=== PATIENT | male | born 1980 | race Caucasian/White ===

== ENCOUNTER 2017-08-26 22:45 | Emergency (ER) | payer OTHER ==
[~2017-08-26] VITALS: Ht 182.9 cm; Wt 95.0 kg
[~2017-08-26 22:45] MED LIST: PROP1TAB PO
[2017-08-26 22:58] VITALS: BP 139/83; PULSE 85; RESP 12; TEMP 98.2; O2SAT 98
[2017-08-26] MEDS ORDERED: VENL25TA PO (23:27)
[2017-08-26] MEDS ORDERED: ALPR.25 PO (23:27)
[2017-08-26] MEDS ORDERED: ZOLP1SUB2 SL (23:27)
--- NOTE | 2017-08-27 00:12 | PD ---
HPI Chief Complaint: Suicide Ideation/Attempt Time Seen by Provider: 00:06 Travel History International Travel<30 days: No Contact w/Intl Traveler<30days: No Traveled to known affect area: No History of Present Illness HPI 37-year-old white male presents emergency department under [place] act by PD. Patient allegedly had been arguing with his baby delmisa today via text messages. The patient had sent suicide suggested text messages earlier this afternoon. Patient states that he was out of the state and had flown in earlier this afternoon. He was over at his mother's house going to sleep this evening when please came to the house and placed him under a Basurto act. Patient states that he is not suicidal or homicidal. He is merely upset with his significant other. He denies any toxic ingestions. No recent illness. He does drink alcohol on occasion, smokes marijuana on occasion, and tobacco. Patient denies any acute medical complaints. He does report that his mother is been diagnosed with a terminal lung disease and he has been under increasing stress. He has been treated by his doctor in [place] with an antidepressant, Ativan and trazodone for sleep. He is requesting his trazodone. [facility] Past Medical History Narrative Medical Depression, anxiety Tetanus Vaccination: < 5 Years Past Surgical History Surgical History: No Previous Surgery Social History Alcohol Use: Yes (SOCIAL) Tobacco Use: Yes Substance Use: Yes (MARIJUANA ) Allergies-Medications (Allergen,Severity, Reaction): Coded Allergies: No Known Allergies (Unverified , 12/27/15) Reported Meds & Prescriptions Reported Meds & Active Scripts Active Reported Zolpidem (Zolpidem Tartrate) Unknown Strength Sub Unknown Dose SL HS PRN Effexor (Venlafaxine HCl) Unknown Strength Tab Unknown Dose PO Q12H Xanax (Alprazolam) Unknown Strength Tab Unknown Dose PO Q4H PRN Physical Exam Narrative GENERAL: Well-nourished, well-developed patient. SKIN: Warm and dry. HEAD: Normocephalic and atraumatic. EYES: No scleral icterus. No injection or drainage. ENT: No nasal drainage noted. Mucous membranes pink. Airway patent. NECK: Supple, trachea midline. Moves head freely without obvious discomfort. CARDIOVASCULAR: Regular rate and rhythm without murmurs, gallops, or rubs. RESPIRATORY: Breath sounds equal bilaterally. No accessory muscle use. GASTROINTESTINAL: Abdomen soft, non-tender, nondistended. EXTREMITIES: No cyanosis or edema. BACK: Nontender without obvious deformity. No CVA tenderness. NEURO: Patient is alert and oriented. no sensorimotor deficits. Nonfocal. Normal speech. PSYCH: No delusions. No auditory or visual hallucinations. Data Data Last Documented VS Vital Signs Date Time Temp Pulse Resp B/P (MAP) Pulse Ox O2 Delivery O2 Flow Rate FiO2 08/26/17 22:58 98.2 85 12 139/83 (101) 98 Orders Orders Psych Screen (08/26/17 23:10) Complete Blood Count With Diff (08/26/17 23:27) Comprehensive Metabolic Panel (08/26/17 23:27) Thyroid Stimulating Hormone (08/26/17 23:27) Drug Screen, Random Urine (08/26/17 23:27) Alcohol (Ethanol) (08/26/17 23:27) Salicylates (Aspirin) (08/26/17 23:27) Tylenol (Acetaminophen) (08/26/17 23:27) Trazodone (Desyrel) (08/27/17 00:15) Labs Laboratory Tests Test 08/26/17 23:25 08/27/17 00:01 Urine Opiates Screen NEG Urine Barbiturates Screen NEG Urine Amphetamines Screen NEG Urine Benzodiazepines Screen POS Urine Cocaine Screen NEG Urine Cannabinoids Screen POS White Blood Count 6.8 TH/MM3 Red Blood Count 5.51 MIL/MM3 Hemoglobin 16.8 GM/DL Hematocrit 48.2 % Mean Corpuscular Volume 87.5 FL Mean Corpuscular Hemoglobin 30.6 PG Mean Corpuscular Hemoglobin Concent 34.9 % Red Cell Distribution Width 13.5 % Platelet Count 230 TH/MM3 Mean Platelet Volume 7.5 FL Neutrophils (%) (Auto) 65.1 % Lymphocytes (%) (Auto) 23.4 % Monocytes (%) (Auto) 9.0 % Eosinophils (%) (Auto) 2.0 % Basophils (%) (Auto) 0.5 % Neutrophils # (Auto) 4.4 TH/MM3 Lymphocytes # (Auto) 1.6 TH/MM3 Monocytes # (Auto) 0.6 TH/MM3 Eosinophils # (Auto) 0.1 TH/MM3 Basophils # (Auto) 0.0 TH/MM3 CBC Comment DIFF FINAL Differential Comment Blood Urea Nitrogen 15 MG/DL Creatinine 1.09 MG/DL Random Glucose 122 MG/DL Total Protein 7.4 GM/DL Albumin 4.0 GM/DL Calcium Level 8.3 MG/DL Alkaline Phosphatase 72 U/L Aspartate Amino Transf (AST/SGOT) 30 U/L Alanine Aminotransferase (ALT/SGPT) 44 U/L Total Bilirubin 0.4 MG/DL Sodium Level 141 MEQ/L Potassium Level 3.6 MEQ/L Chloride Level 105 MEQ/L Carbon Dioxide Level 26.4 MEQ/L Anion Gap 10 MEQ/L Estimat Glomerular Filtration Rate 77 ML/MIN Thyroid Stimulating Hormone 3rd Gen 1.240 uIU/ML Salicylates Level LESS THAN 1.7 MG/DL Acetaminophen Level LESS THAN 2.0 MCG/ML Ethyl Alcohol Level 63 MG/DL MDM Medical Decision Making Medical Screen Exam Complete: Yes Emergency Medical Condition: Yes Medical Record Reviewed: Yes Interpretation(s) Laboratory Tests Test 08/26/17 23:25 08/27/17 00:01 Urine Opiates Screen NEG Urine Barbiturates Screen NEG Urine Amphetamines Screen NEG Urine Benzodiazepines Screen POS Urine Cocaine Screen NEG Urine Cannabinoids Screen POS White Blood Count 6.8 TH/MM3 Red Blood Count 5.51 MIL/MM3 Hemoglobin 16.8 GM/DL Hematocrit 48.2 % Mean Corpuscular Volume 87.5 FL Mean Corpuscular Hemoglobin 30.6 PG Mean Corpuscular Hemoglobin Concent 34.9 % Red Cell Distribution Width 13.5 % Platelet Count 230 TH/MM3 Mean Platelet Volume 7.5 FL Neutrophils (%) (Auto) 65.1 % Lymphocytes (%) (Auto) 23.4 % Monocytes (%) (Auto) 9.0 % Eosinophils (%) (Auto) 2.0 % Basophils (%) (Auto) 0.5 % Neutrophils # (Auto) 4.4 TH/MM3 Lymphocytes # (Auto) 1.6 TH/MM3 Monocytes # (Auto) 0.6 TH/MM3 Eosinophils # (Auto) 0.1 TH/MM3 Basophils # (Auto) 0.0 TH/MM3 CBC Comment DIFF FINAL Differential Comment Blood Urea Nitrogen 15 MG/DL Creatinine 1.09 MG/DL Random Glucose 122 MG/DL Total Protein 7.4 GM/DL Albumin 4.0 GM/DL Calcium Level 8.3 MG/DL Alkaline Phosphatase 72 U/L Aspartate Amino Transf (AST/SGOT) 30 U/L Alanine Aminotransferase (ALT/SGPT) 44 U/L Total Bilirubin 0.4 MG/DL Sodium Level 141 MEQ/L Potassium Level 3.6 MEQ/L Chloride Level 105 MEQ/L Carbon Dioxide Level 26.4 MEQ/L Anion Gap 10 MEQ/L Estimat Glomerular Filtration Rate 77 ML/MIN Thyroid Stimulating Hormone 3rd Gen 1.240 uIU/ML Salicylates Level LESS THAN 1.7 MG/DL Acetaminophen Level LESS THAN 2.0 MCG/ML Ethyl Alcohol Level 63 MG/DL Differential Diagnosis MDM: High Differential diagnoses: Schizophrenia, schizoaffective disorder, bipolar, anxiety, depression, adjustment reaction, mood disorder NOS, ODD, depressive disorder NOS, psychosis NOS, substance induced mood disorder, infection, electrolyte abnormality, malingering. Narrative Course Mental health screening discussed with the patient. Psychiatric screen ordered. The patient has requested his evening dose of trazodone for sleep. He is given 50 mg p.o. The patient has been medically cleared. This is medical clearance for psychiatric admission Diagnosis Primary Impression: Medical clearance for psychiatric admission Condition: Stable Michael Segundo August 27, 2017 00:12
[2017-08-27 00:13] LABS: AUTOMATED NEUTROPHIL # 4.4 TH/MM3 (1.8-7.7); BASOPHIL % 0.5 % (0.0-2.0); EOSINOPHIL # 0.1 TH/MM3 (0-0.4); HEMATOCRIT 48.2 % (39.0-51.0); HEMOGLOBIN 16.8 GM/DL (13.0-17.0); LYMPH % 23.4 % (9.0-44.0); LYMPHOCYTE # 1.6 TH/MM3 (1.0-4.8); MEAN CELL VOLUME 87.5 FL (80.0-100.0); MEAN CORPUSCULAR HEMOGLOBIN 30.6 PG (27.0-34.0); MEAN CORPUSCULAR HGB CONC 34.9 % (32.0-36.0); MEAN PLATELET VOLUME 7.5 FL (7.0-11.0); MONOCYTE # 0.6 TH/MM3 (0-0.9); NEUT % 65.1 % (16.0-70.0); PLATELET COUNT 230 TH/MM3 (150-450); RED BLOOD COUNT 5.51 MIL/MM3 (4.50-5.90); RED CELL DISTRIBUTION WIDTH 13.5 % (11.6-17.2); WHITE BLOOD COUNT 6.8 TH/MM3 (4.0-11.0)
[2017-08-27] MEDS ORDERED: traZODone HCL 50 MG TAB PO ONE (00:15)
[2017-08-27 00:32] LABS: ALT (GPT) 44 U/L (12-78); AST (GOT) 30 U/L (15-37); BICARBONATE 26.4 MEQ/L (21.0-32.0); BLOOD UREA NITROGEN 15 MG/DL (7-18); CALCIUM 8.3 MG/DL (8.5-10.1); CHLORIDE 105 MEQ/L (98-107); CREATININE 1.09 MG/DL (0.60-1.30); GLOMERULAR FILTRATION RATE 77 ML/MIN (>89); GLUCOSE,RANDOM 122 MG/DL (74-106); SODIUM (NA) 141 MEQ/L (136-145)
[2017-08-27 00:43] LABS: ALKALINE PHOSPHATASE 72 U/L (45-117); TOTAL BILIRUBIN ADULT 0.4 MG/DL (0.2-1.0); TOTAL PROTEIN 7.4 GM/DL (6.4-8.2)
[2017-08-27 00:46] LABS: ACETAMINOPHEN LESS THAN 2.0 MCG/ML (10.0-30.0)
[2017-08-27 05:39] VITALS: BP 129/66; PULSE 81; RESP 16; O2SAT 98
--- NOTE | 2017-08-27 12:53 | PD.PSY.CON ---
Provisional Diagnosis Admission Date [place] I. Alcohol-induced mood disorder, alcohol use disorder, benzodiazepines and cannabis use disorder [place] II. Deferred [place] III. 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 Patient allegedly had been arguing with his baby delmisa today via text messages. The patient had sent suicide suggested text messages yesterday afternoon. Patient states that he was out of the state and had flown in earlier this afternoon. He was over at his mother's house going to sleep this evening when please came to the house and placed him under a Basurto act. Patient reports that he was maybe "a little bit drunk and I should not say whaat I stated, but I never meant to commit suicide". Patient is future oriented, he says that he has business to close this week. The patient denies depressive symptoms, he denies suicidal enemas ideation, he denies visual and auditory hallucinations. He is clinically sober at the moment. Logical, coherent and relevant. Oriented 3. No symptoms of withdrawal or intoxication present at this moment. He is oriented 3. Review of Systems Constitutional: DENIES: Diaphoretic episodes, Fatigue, Fever, Weight gain, Weight loss, Chills, Dizziness, Change in appetite, Night Sweats Endocrine: DENIES: Heat/cold intolerance, Polydipsia, Polyuria, Polyphagia Eyes: DENIES: Blurred vision, Diplopia, Eye inflammation, Eye pain, Vision loss , Photosensitivity, Double Vision Ears, nose, mouth, throat: DENIES: Tinnitus, Hearing loss, Vertigo, Nasal discharge, Oral lesions, Throat pain, Hoarseness, Ear Pain, Running Nose, Epistaxis, Sinus Pain, Toothache, Odynophagia Respiratory: DENIES: Apneas, Cough, Snoring, Wheezing, Hemoptysis, Sputum production, Shortness of breath Cardiovascular: DENIES: Chest pain, Palpitations, Syncope, Dyspnea on Exertion , PND, Lower Extremity Edema, Orthopnea, Claudication Gastrointestinal: DENIES: Abdominal pain, Black stools, Bloody stools, Constipation, Diarrhea, Nausea, Vomiting, Difficulty Swallowing, Anorexia Genitourinary: DENIES: Sexual dysfunction, Urinary frequency, Urinary incontinence, Urgency, Hematuria, Dysuria, Nocturia, Penile Discharge, Testicular Pain, Testicular Swelling Musculoskeletal: DENIES: Joint pain, Muscle aches, Stiffness, Joint Swelling, Back pain, Neck pain Integumentary: DENIES: Abnormal pigmentation, Nail changes, Pruritus, Rash Hematologic/lymphatic: DENIES: Bruising, Lymphadenopathy Immunologic/allergic: DENIES: Eczema, Urticaria Neurologic: DENIES: Abnormal gait, Headache, Localized weakness, Paresthesias, Seizures, Speech Problems, Tremor, Poor Balance Psychiatric: DENIES: Anxiety, Confusion, Mood changes, Depression, Hallucinations, Agitation, Suicidal Ideation, Homicidal Ideation, Delusions Past Family Social History Coded Allergies: No Known Allergies (Unverified Adverse Reaction, Unknown, 08/27/17) Reported Medications Zolpidem (Zolpidem) Unknown Strength Sub, SL HS Y for INSOMNIA, TAB.SL 0 Refills 08/26/17 Venlafaxine (Effexor) Unknown Strength Tab, PO Q12H, #60 TAB 0 Refills 08/26/17 Alprazolam (Xanax) Unknown Strength Tab, PO Q4H Y for ANXIETY, TAB 0 Refills 08/26/17 Family Psych History No family psychiatric Social History Patient was born and raised in [facility], he lives in [facility] with baby mom, 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 2) Family support, no psychiatric history Physical Exam Vital Signs Vital Signs Date Time Temp Pulse Resp B/P (MAP) Pulse Ox O2 Delivery O2 Flow Rate FiO2 08/27/17 09:36 08/27/17 05:39 81 16 98 Room Air 08/26/17 22:58 98.2 Lab Results Test 08/26/17 23:25 08/27/17 00:01 Urine Opiates Screen NEG Urine Barbiturates Screen NEG Urine Amphetamines Screen NEG Urine Benzodiazepines Screen POS Urine Cocaine Screen NEG Urine Cannabinoids Screen POS White Blood Count 6.8 TH/MM3 Red Blood Count 5.51 MIL/MM3 Hemoglobin 16.8 GM/DL Hematocrit 48.2 % Mean Corpuscular Volume 87.5 FL Mean Corpuscular Hemoglobin 30.6 PG Mean Corpuscular Hemoglobin Concent 34.9 % Red Cell Distribution Width 13.5 % Platelet Count 230 TH/MM3 Mean Platelet Volume 7.5 FL Neutrophils (%) (Auto) 65.1 % Lymphocytes (%) (Auto) 23.4 % Monocytes (%) (Auto) 9.0 % Eosinophils (%) (Auto) 2.0 % Basophils (%) (Auto) 0.5 % Neutrophils # (Auto) 4.4 TH/MM3 Lymphocytes # (Auto) 1.6 TH/MM3 Monocytes # (Auto) 0.6 TH/MM3 Eosinophils # (Auto) 0.1 TH/MM3 Basophils # (Auto) 0.0 TH/MM3 CBC Comment DIFF FINAL Differential Comment Blood Urea Nitrogen 15 MG/DL Creatinine 1.09 MG/DL Random Glucose 122 MG/DL Total Protein 7.4 GM/DL Albumin 4.0 GM/DL Calcium Level 8.3 MG/DL Alkaline Phosphatase 72 U/L Aspartate Amino Transf (AST/SGOT) 30 U/L Alanine Aminotransferase (ALT/SGPT) 44 U/L Total Bilirubin 0.4 MG/DL Sodium Level 141 MEQ/L Potassium Level 3.6 MEQ/L Chloride Level 105 MEQ/L Carbon Dioxide Level 26.4 MEQ/L Anion Gap 10 MEQ/L Estimat Glomerular Filtration Rate 77 ML/MIN Thyroid Stimulating Hormone 3rd Gen 1.240 uIU/ML Salicylates Level LESS THAN 1.7 MG/DL Acetaminophen Level LESS THAN 2.0 MCG/ML Ethyl Alcohol Level 63 MG/DL Mental Status Examination Appearance: Appropriate Consciousness: Alert Orientation: x4 Motor Activity: Normal gait Speech: Unremarkable Language: Adequate Fund of Knowledge: Adequate Attention and Concentration: Adequate Memory: Unremarkable Mood: Appropriate Affect: Appropriate Thought Process & Associations: Intact Thought Content: Appropriate Hallucination Type: None Delusion Type: None Suicidal Ideation: No Suicidal Plan: No Suicidal Intention: No Homicidal Ideation: No Homicidal Plan: No Homicidal Intention: No Insight: Adequate Judgment: Adequate Assessment & Plan Problem List: (1) Alcohol abuse with alcohol-induced mood disorder ICD Codes: F10.14 - Alcohol abuse with alcohol-induced mood disorder Assessment & Plan: Psychiatric evaluation today the patient is clinically sober. The patient denies symptomatology of depression, penny, anxiety and psychosis. He denies suicidal and homicidal ideation. He denies visual and auditory hallucinations. The patient is future oriented, logical, coherent and relevant. Apparently his recent suicidal statements to his baby mom were in the context of acute alcohol intoxication, also with animosity to manipulate, but no with suicidal intentions. He does not meet criteria for involuntary psychiatric admission at this moment. Supportive motivation provided. Basurto act will be lifted. Assessment & Plan Estimated LOS: Lamine Jorge MD August 27, 2017 12:53
== END 2017-08-27 09:37 | disposition home or self-care (01) ==
LOC: NEPD 22:45
DX: F10.14 Alcohol abuse with alcohol-induced mood disorder (principal); F12.90 Cannabis use, unspecified, uncomplicated; F41.9 Anxiety disorder, unspecified; F32.9 Major depressive disorder, single episode, unspecified; Y90.3 Blood alcohol level of 60-79 mg/100 ml; Z72.0 Tobacco use; Z79.899 Other long term (current) drug therapy
CPT/HCPCS: 80053; 80307; 84443; 85025; 99284